=== PATIENT | female | born 1970 | race Caucasian/White ===

== ENCOUNTER 2018-03-27 22:05 | Observation (INO) | payer SELFPAY ==
[~2018-03-27] VITALS: Ht 165.1 cm; Wt 117.9 kg
--- NOTE | ~2018-03-27 | OP ---
PATIENT NAME: LAURA HO MEDICAL RECORD: [id number] :74 LOCATION:[facility] ADMISSION DATE:03/28/18 SURGEON: APARNA ELIZALDE MD DATE OF OPERATION: 03/28/2018 PROCEDURES: 1. Left heart catheterization. 2. Selective coronary angiography. 3. Left ventriculogram. INDICATION: Chest pain compatible with angina. PROCEDURE IN DETAIL: After informed consent was obtained and after a detailed description of risks, benefits as well as alternative therapies, the patient elected to proceed with angiogram and heart catheterization. The right radial area was prepped and draped in normal sterile fashion. Right radial artery was cannulated via modified Seldinger technique with placement of 5-Albanian sheath. All catheters exchanged through this sheath. FINDINGS: Left ventriculogram performed in standard 30-degree SORENSON view, reveals good cardiac wall motion throughout all segments. Overall ejection fraction estimated 60%. SELECTIVE CORONARY ANGIOGRAPHY: 1. Left main is with no significant angiographic disease. 2. Left anterior descending has moderate irregularities, but no flow-limiting stenosis. No stenosis greater than 20%. 3. Left circumflex has moderate irregularities, but no flow-limiting stenosis. No stenosis greater than 20%. 4. Right coronary artery has no significant disease. OVERALL IMPRESSION: Minimal cardiovascular disease is present. No flow-limiting stenosis. Continue medical management of the coronary artery disease and cardiac risk factors. TRANSINT:[id number] Voice Confirmation ID: [id number] DOCUMENT ID: [id number] APARNA ELIZALDE MD at 1006 CC: [id number] DICTATION DATE: 03/28/18 1353 HOUSE PAINTER: 03/28/18 1402 DIS IN 03/28/18 [facility] [address] [place] [address]
--- NOTE | ~2018-03-27 | CN ---
PATIENT NAME:LAURA CRUZ MEDICAL RECORD: [id number] : 74 LOCATION:[facility].E12- ADMIT DATE: 03/28/18 ACCOUNT: [id number] CONSULTING PHYSICIAN: APARNA ELIZALDE MD REFERRING PHYSICIAN: APARNA ELIZALDE MD DATE OF CONSULTATION: 03/28/2018 ADMITTING DIAGNOSES: 1. Chest pain compatible with angina. 2. Diabetes. 3. Family history of coronary artery disease. 4. Hypertension. 5. Hyperlipidemia. HISTORY OF PRESENT ILLNESS: Mrs. Cruz has multiple risk factors for coronary disease as listed above. She has been having 2 months of increasing episodes of chest pain. Chest pain is compatible with anginal. We evaluated her in the office. We suggested cardiac catheterization; however, her insurance company denied it and she is set for a stress test. She has continued to have worsening chest pain in an unstable fashion. She now presents to the Emergency Room. PHYSICAL EXAMINATION: GENERAL APPEARANCE: Well-nourished, well-developed, appears stated age. Level of distress, comfortable. PSYCHIATRIC: Mental status, alert, normal affect. Orientation, oriented to time, place and person. EYES: Lids and conjunctiva, noninjected. No discharge, no pallor. ENT: Lips, teeth, gums, normal dentition. Oropharynx, no cyanosis, no pallor. NECK: Carotid arteries, bilateral normal upstroke, no bruits, no thrills. JUGULAR VEINS: No jugular venous pressure or distention. CERVICAL LYMPH NODES: Nontender, nonenlarged. THYROID: Not enlarged. Nontender. No nodules. LUNGS: Respiratory effort, unlabored. CHEST: Normal curvature. No thoracic deformity. No chest wall tenderness. Percussion, resonant. Auscultation, clear. No wheezes, no rales, no rhonchi. CARDIOVASCULAR: Precordial exam, nondisplaced. No heaves or pericardial thrills. Rate and rhythm, regular. Heart sounds, normal S1, normal S2. No S3, no gallop, no rub. Systolic murmur, not heard. Diastolic murmur, not heard. EXTREMITIES: No cyanosis, no edema. Peripheral pulses, full and equal in all extremities, except as noted. No bruits appreciated. ABDOMEN: Soft, nondistended. Normal aorta. No bruit. Nontender. No masses. Liver, nontender, no hepatomegaly. Spleen, nontender, no splenomegaly. MUSCULOSKELETAL: No joint tenderness. No joint swelling. No erythema. NEUROLOGICAL: Normal gait, normal strength, normal tone. SKIN: Warm and dry. REVIEW OF SYSTEMS: The patient reports easy bruising but reports no swollen glands. The patient reports no fever, no night sweats, no significant weight gain, no significant weight loss. No significant exercise tolerance. The patient reports no dry eyes, no irritation, no vision change. Patient reports no difficulty hearing and no ear pain. Patient reports no frequent nose bleeds or nose and sinus problems. Patient reports on arm pain on exertion. No shortness of breath while lying down. No history of heart murmur. Patient reports no cough, no wheezing or coughing up blood. Patient reports no abdominal pain, no vomiting. Normal appetite. No diarrhea and not vomiting CONSULT REPORT [id number] LAURA CRUZ [place] blood. No nausea and no constipation. Patient reports no incontinence. No difficulty urinating. No hematuria. No increased frequency. Patient reports no muscle aches. No weakness, no arthralgias, no back pain. No swelling of the extremities. Patient reports no abnormal mole, no jaundice, no rashes. Reports no loss of consciousness. No weakness and no numbness. No seizures, dizziness, or headaches. The patient reports no depression, no sleep disturbance, feeling safe in a relationship and no alcohol abuse. Patient reports on fatigue. Reports no runny nose or sinus pressure. No itching, no hives, and no frequent sneezing. OVERALL IMPRESSION: Unstable anginal symptomatology in a pleasant patient with multiple risk factors, most likely she has hemodynamically significant coronary artery disease. We will proceed with coronary angiography. Further care depends upon findings of the angiography. TRANSINT:[id number] Voice Confirmation ID: [id number] DOCUMENT ID: [id number] APARNA ELIZALDE MD at 135 CC: [id number] DICTATION DATE: 03/28/18842 MENTALLY IMPAIRED TEACHER: 03/28/18 1126 ADM IN [place] [id number] [place] [address]
--- NOTE | ~2018-03-27 | HEMODYNAMI ---
PATIENT:LAURA HO MEDICAL RECORD: [id number] : 74 LOCATION:[facility]- [facility]# [id number] ADMISSION DATE: 03/28/18 Generatedon:03/28/201813:57 Patient name: LAURA HO Patient #: [id number] SSN: : 1970 Date of study: 03/28/2018 Page: Of Hemodynamic Procedure Report Patient Data Patient Demographics Procedure consent was obtained First Name: LAURA Gender: Female Last Name: [place] : 1970 [facility] Initial: CAMILLE Age: 47 year(s) Patient #: [id number] Race: Unknown Additional ID: [id number] Contact details [address]: [address] [place] [address] State: [place] City: [place] Zip code: [address] Past Medical History Allergies Allergen Reaction Date Comments Reported Penicillins 03/28/2018 Other allergy 03/28/2018 Latex Admission Admission Data Admission Date: 03/28/2018 Admission Time: 1:29 Admit Source: Emergency department Room #: D.E12 Lab Results Lab Result Date: 03/28/2018 Lab Result Time: 9:00 Biochemistry Name Units Result Min Max BUN mg/dl 11 --(-*--)-- 7 18 Creatinine mg/dl 0.6 --(*---)-- 0.6 1.3 CBC Name Units Result Min Max Hematocrit % 40.8 -*(----)-- 42 54 Hemoglobin g/dl 14.1 --(*---)-- 13.5 17.5 Procedure Procedure Types Cath Procedure Diagnostic Procedure LHC LHC w/Coronaries Procedure Description Procedure Date Procedure Date: 03/28/2018 Procedure Start Time: 13:43 Procedure End Time: 13:56 Procedure Staff Name Function Bogdan Curry MD Performing Physician Robbin Crespo RT Monitor Ashvin Leblanc RT Scrub Wai Caicedo RN Nurse Procedure Data Cath Procedure Fluoroscopy Diagnostic fluoroscopy Total fluoroscopy Time: 2.1 time: 2.1 min min Diagnostic fluoroscopy Total fluoroscopy dose: dose: 189.1 mGy 189.1 mGy Contrast Material Contrast Material Type Amount (ml) Isovue 300 54 Entry Location Entry Primary Successful Side Size Upsize Upsize Entry Closure Leslie ccessful Closure Location (Fr) 1 (Fr) 2 (Fr) Remarks Device Remarks Radial Right 6 Fr Mechanical artery Short Compression Estimated blood loss: 5 ml Diagnostic catheters Device Type Used For End Catheter Placement DIAGNOSTIC Manor 110cm 5 Procedure Fr catheter ([id number]) Procedure Medications Medication Administration Route Dosage 0.9% NaCl I.V. 100 ml/hr Oxygen etCO2 Nasal cannula 2 l/min Heparin Flush Bag added to field 2 bags (1000units/500ml NS) Lidocaine 2% added to field 20 Radial Cocktail added to field 1 syringe (Verapomil 2mg/Nitro 400mcg/Heparin 1500units) Versed I.V. 2 mg Fentanyl I.V. 100 mcg Radial Cocktail I.A. 1 syringe (Verapomil 2mg/Nitro 400mcg/Heparin 1500units) Versed I.V. 2 mg Hemodynamics Rest HGB: 14.1 (g/dl) Heart Rate: 78 (bpm) Pressure Samples Time Site Value (mmHg) Purpose Heart Use Rate(bpm) 13:46 LV 71/4,23 Snapshot 90 13:46 LV 118/-1,1 Snapshot 89 Snapshots Pre Cath Intra NCS Post Cath Vital Signs Time Heart Resp SPO2 etCO2 NIBP (mmHg) Rhythm Pain Sedation Rate (ipm) (%) (mmHg) Status Level (bpm) 13:46:13 91 18 98 37.4 137/80(108) NSR 0 (11) 10(A) , No pain 13:50:39 88 19 94 36.7 127/83(101) NSR 0 (11) 10(A) , No pain 13:55:01 81 18 95 37.4 125/83(107) NSR 0 (11) 10(A) , No pain Medications Time Medication Route Dose Verified Delivered Reason Notes Effectiveness by by 13:38:04 0.9% NaCl I.V. 100 Wai Wai Per ml/hr Marifer Caicedo physician RN RN 13:38:14 Oxygen etCO2 2 l/min Wai Wai Per Nasal Marifer Caicedo physician cannula RN RN 13:38:26 Heparin Flush added 2 bags Wai Wai used for Bag to Marifer Caicedo procedure (1000units/500ml field RN RN NS) 13:38:39 Lidocaine 2% added 20ml Wai Wai for local to vial Lorigan Lorigan anesthetic field RN RN 13:38:50 Radial Cocktail added 1 Wai Wai used for (Verapomil to syringe Lorigan Lorigan procedure 2mg/Nitro field RN RN 400mcg/Heparin 1500units) 13:43:58 Versed I.V. 2 mg Wai Wai for sedation Marifer Caicedo RN RN 13:44:05 Fentanyl I.V. 100 mcg Wai Wai for sedation Marifer Caicedo RN RN 13:44:51 Radial Cocktail I.A. 1 Wai Bogdan for (Verapomil syringe Lorigan Tauth MD vasodilation 2mg/Nitro RN 400mcg/Heparin 1500units) 13:45:55 Versed I.V. 2 mg Wai Wai for sedation Marifer Caicedo RN phonograph mechanic Log Time Note 12:47:48 Informed consent obtained and on chart 12:47:52 Admit Source: Emergency department 12:48:10 Diagnostic Cath status Elective 12:48:11 Time tracking: Regular hours (M-F 7:00 - 5:00) 12:48:15 Plan of Care:Hemodynamics will remain stable., Cardiac rhythm will remain stable., Comfort level will be maintained., Respiratory function will remain adequate., Patient/ family verbilizes understanding of procedure., Procedure tolerated without complication., Recovers from procedure without complications.. 12:48:21 H&P Date Dictated: 03/28/2018 Within 30 days and on chart.. 12:50:15 Lab Result : BUN 11 mg/dl 12:50:15 Lab Result : Hemoglobin 14.1 g/dl 12:50:15 Lab Result : Creatinine 0.6 mg/dl 12:50:15 Lab Result : Hematocrit 40.8 % 12:50:18 Lab results completed and on chart. 12:57:01 Patient not . Patient has had hysterectomy. 13:09:36 Ashvin Leblanc RT(R) sent for patient. Start room use. 13:33:53 Patient received from Pre/Post Procedure Room to CCL 3 Alert and oriented. Tansferred to table in Supine position. 13:34:00 Warm blankets applied, and roman hugger turned on for patient comfort. 13:34:02 Correct patient and procedure confirmed by team. 13:34:06 ECG and BP/O2 sat monitors applied to patient. 13:34:07 Vital chart was started 13:34:08 Baseline sample Acquired. 13:34:15 Rhythm: sinus rhythm 13:34:20 Full Disclosure recording started 13:34:57 Pre-procedure instructions explained to patient. 13:34:57 Pre-op teaching completed and patient verbalized understanding. 13:35:00 Family in waiting room. 13:35:15 Patient NPO since Midnight. 13:35:33 Patient allergic to Penicillins 13:35:57 Patient allergic to Other allergyLatex 13:36:13 Is the patient allergic to Iodine/contrast media? Unknown. 13:36:25 Is patient on blood thinner?Yes 13:36:29 ACC The patient was administered the following blood thiners within the last 24 hours: ACCPlavix 13:36:43 600mg PLAVIX IN THE ER 13:36:47 Patient diabetic? Yes. 13:36:49 If diabetic: On Metformin? Yes 13:37:37 ----Pre-sedation anethsthesia assessment.---- 13:37:40 Previous problem with sedation/anesthesia? No ? 13:37:42 Snore? Yes 13:37:43 Sleep apnea? No 13:37:44 Deviated septum? No 13:37:45 Opens mouth fully? Yes 13:37:46 Sticks out tongue? Yes 13:37:49 Airway obstruction? No ? 13:37:56 Dentures? Yes OUT 13:38:02 Pre procedure: right dorsailis pedis pulse 1+ Palpable, but thready & weak; easily obliterated 13:38:04 0.9% NaCl 100 ml/hr I.V. was administered by Wai Caicedo RN; Per physician; 13:38:06 Patient pain scale 0/10 ?. 13:38:14 Oxygen 2 l/min etCO2 Nasal cannula was administered by Wai Caicedo RN; Per physician; 13:38:18 IV patent on arrival in left forearm with 0.9% NaCl at [facility]. 13:38:26 Heparin Flush Bag (1000units/500ml NS) 2 bags added to field was administered by Wai Caicedo RN; used for procedure; 13:38:39 Lidocaine 2% 20ml vial added to field was administered by Wai Caicedo RN; for local anesthetic; 13:38:42 Right Radial & Right Groin area was prepped with chlora-prep and draped in sterile fashion 13:38:43 Alarms reviewed by R. N. 13:38:44 Sharps counted by scrub and verified by R.N. 13:38:50 Radial Cocktail (Verapomil 2mg/Nitro 400mcg/Heparin 1500units) 1 syringe added to field was administered by Wai Caicedo RN; used for procedure; 13:39:12 Use device set Radial Dx or PCI 13:39:13 ACIST Syringe (08373) opened to sterile field. 13:39:14 Medline Cath Pack ([id number]) opened to sterile field. 13:39:14 Bag Decanter (2002S) opened to sterile field. 13:39:15 DIAGNOSTIC WIRE .035 260cm J wire (901738) opened to sterile field. 13:39:16 ACIST Hand Control (83369) opened to sterile field. 13:39:16 ACIST Manifold (80153) opened to sterile field. 13:39:19 Tegaderm 4 x 4 (1626W) opened to sterile field. 13:39:22 SHEATH 6Fr Prelude Radial ([id number]) opened to sterile field. 13:39:41 Physician arrived 13:39:42 --------ALL STOP TIME OUT------ 13:39:43 Final Timeout: patient, procedure, and site verified with staff and physician. All members of the team are in agreement. 13:39:45 Right Radial & Right Groin site verified by team. 13:39:52 Physical assessment completed. ASA score P 2 - A patient with mild systemic disease as per Bogdan Curry MD. 13:40:27 Sedation plan: IV Moderate Sedation Medication:Versed, Fentanyl 13:42:37 Procedure started. 13:43:51 Local anesthetic to right radial artery with Lidocaine 2% by Bogdan Curry MD.INITIAL ACCESS ONLY 13:43:58 Versed 2 mg I.V. was administered by Wai Caicedo RN; for sedation; 13:44:05 Fentanyl 100 mcg I.V. was administered by Wai Caicedo RN; for sedation; 13:44:51 Radial Cocktail (Verapomil 2mg/Nitro 400mcg/Heparin 1500units) 1 syringe I.A. was administered by Bogdan Curry MD; for vasodilation; 13:45:04 A 6 Fr Short sheath was inserted into the Right Radial artery 13:45:42 A DIAGNOSTIC Manor 110cm 5 Fr catheter ([id number]) was advanced over the wire and used for Procedure. 13:45:54 Zero performed for pressure channel P1 13:45:55 Versed 2 mg I.V. was administered by Wai Caicedo RN; for sedation; 13:45:58 Zero performed for pressure channel P1 13:46:00 Zero performed for pressure channel P1 13:46:10 Zero performed for pressure channel P1 13:47:03 LV hemodynamics recorded. 13:47:05 LV gram done using SORENSON 13:47:11 EF : 55 % 13:47:43 RCA angiography performed. 13:48:04 Catheter removed. 13:48:32 GUIDE 6FR EBU 3.0 catheter ([id number]) opened to sterile field. 13:49:14 LCA angiography performed. 13:50:35 Catheter removed. 13:51:24 TR BAND Standard ([id number]) opened to sterile field. 13:52:38 Sheath removed intact; hemostasis achieved with Mechanical Compression to the Right Radial artery. 13:52:45 Procedure ended.(Physican Out) 13:52:55 Fluoroscopy time 02.10 minutes. 13:53:10 Fluoroscopy dose: 189.1 mGy 13:53:10 Flurop Dose total: 189.1 13:54:05 Contrast amount:Isovue 300 54ml. 13:54:07 Sharps counted by scrub and verified by R.N. 13:54:10 TR band inflated with 12cc of air. 13:54:12 Insertion/operative site no bleeding no hematoma. 13:54:18 Post right radial artery:stable 13:54:24 Post-procedure physical assessment completed. ASA score P 2 - A patient with mild systemic disease as per Bogdan Curry MD. 13:54:28 Post procedure rhythm: sinus rhythm 13:54:31 Estimated blood loss: 5 ml 13:54:32 Post procedure instruction explained to patient.Patient verbalizes understanding. 13:54:33 Patient needs reinforcement of post procedure teaching. 13:54:34 Procedure and supply charges have been captured, reviewed, submitted and are correct. 13:55:22 Vital chart was stopped 13:55:29 See physician's report for complete and final results. 13:55:31 Report given to Pre/Post Procedure Room. 13:55:58 Patient transfered to Pre/Post Procedure Room with Stretcher. 13:56:08 Procedure ended. 13:56:08 Full Disclosure recording stopped 13:56:12 End room use (Document Last) Device Usage Item Name Manufacture Quantity Catalog Number Hospital Part Current M inimal Lot# / Charge Number Stock Stock Serial# Code ACIST Syringe Acist 1 60207 371549 897225 212833 2 0 (55925) [employer] Medline Cath Cardinal 1 [id number] 898063 04880 663906 5 orderTalk ([id number]) Bag Decanter Microtek 1 2001S 051812 77704 430543 5 (2001S) Medical Inc. DIAGNOSTIC WIRE St Jimmie 1 771849 751243 960440 498313 3 0 .035 260cm J wire (684073) ACIST Hand Acist 1 51704 013942 773971 801349 5 Control (63886) [employer] Inc ACIST Manifold Acist 1 28676 609592 713488 084606 5 (49989) [employer] Inc Tegaderm 4 x 4 3M 1 1626W 222380 932929 996847 5 (1626W) SHEATH 6Fr Merit 1 [id number] 599451 763758 034408 5 Prelude Radial Medical ([id number]) DIAGNOSTIC Terumo 1 405013 642492 290174 694068 5 Manor 110cm 5 Fr catheter (627523) GUIDE 6FR EBU Medtronic 1 [id number] 009244 78117 339461 0 3.0 catheter ([id number]) TR BAND Terumo 1 [id number] 096447 235904 671026 4 0 Standard ([id number]) Signature Audit [place] Stage Time Signature Unsigned Intra-Procedure 03/28/2018 Robbin Crespo 1:57:33 PM RT(R) (CV) Signatures Monitor : Robbin Crespo RT Signature : Date : Time : [place] [id number] [place] [address]
[2018-03-27 23:47] LABS: BASOPHILS 0.3 % (0-2); EOSINOPHILS 1.1 % (0-7); HEMATOCRIT 39.7 % (36.0-48.0); HEMOGLOBIN 13.8 g/dL (12-16); IMMATURE GRANULOCYTES 0.8 % (0-5); LYMPHOCYTES 24.5 % (15-50); MCHC 34.8 g/dL (31.0-37.0); MCV 89.2 fL (80.0-100.0); MEAN PLATELET VOLUME 8.6 fL (7.4-10.4); MONOCYTES 6.7 % (2-11); NEUTROPHILS 66.6 % (40-80); PLATELET COUNT 227 10x3/uL (130-400); RBC 4.45 10x6/uL (4.00-5.40); RDW 12.7 % (11.5-14.5)
[2018-03-28] LABS: ALBUMIN 3.5 g/dL (3.4-5.0); ALKALINE PHOSPHATASE 62 U/L (46-116); ALT (SGPT) 24 U/L (10-68); BILIRUBIN - TOTAL 0.32 mg/dL (0.2-1.3); CALC OSMOLALITY 280 mosm/kg (275-300); CALCIUM 8.7 mg/dL (8.5-10.1); CHLORIDE - SERUM 104 mmol/L (98-107); CREATININE - SERUM 0.7 mg/dL (0.6-1.3); GLUCOSE 132 mg/dL (74-106); POTASSIUM - SERUM 3.8 mmol/L (3.5-5.1); PROTEIN - SERUM 7.2 g/dL (6.4-8.2); SODIUM 139 mmol/L (136-145); UREA NITROGEN 14 mg/dL (7-18); eGFR NON AFRICAN AMERICAN > 90 mL/min (90-120)
[2018-03-28 00:11] LABS: CKMB 0.3 U/L (0.0-3.6); CREATINE KINASE 28 UL (21-215)
[2018-03-28 00:13] LABS: TROPONIN-I < 0.017 ng/mL (0.000-0.060)
[2018-03-28 09:06] LABS: BASOPHILS 0.2 % (0-2); EOSINOPHILS 0.7 % (0-7); HEMATOCRIT 40.8 % (36.0-48.0); HEMOGLOBIN 14.1 g/dL (12-16); IMMATURE GRANULOCYTES 0.6 % (0-5); LYMPHOCYTES 16.6 % (15-50); MCH 31.1 pg (26.0-34.0); MCHC 34.6 g/dL (31.0-37.0); MCV 90.1 fL (80.0-100.0); MONOCYTES 6.1 % (2-11); NEUTROPHILS 75.8 % (40-80); PLATELET COUNT 211 10x3/uL (130-400); RBC 4.53 10x6/uL (4.00-5.40); RDW 12.9 % (11.5-14.5); WBC 10.1 10x3/uL (4.8-10.8)
[2018-03-28 09:31] LABS: CALC OSMOLALITY 278 mosm/kg (275-300); CARBON DIOXIDE 25.1 mmol/L (21.0-32.0); CHLORIDE - SERUM 104 mmol/L (98-107); CREATININE - SERUM 0.6 mg/dL (0.6-1.3); GLUCOSE 133 mg/dL (74-106); POTASSIUM - SERUM 4.4 mmol/L (3.5-5.1); SODIUM 139 mmol/L (136-145); TROPONIN-I < 0.017 ng/mL (0.000-0.060); UREA NITROGEN 11 mg/dL (7-18); eGFR NON AFRICAN AMERICAN > 90 mL/min (90-120)
[2018-03-28] MEDS ORDERED: COZAAR100 MG PO (14:25)
[2018-03-28] MEDS ORDERED: CYMBALTA60 MG PO (14:25)
[2018-03-28] MEDS ORDERED: CRESTOR20 MG PO (14:25)
[2018-03-28] MEDS ORDERED: LEVOXYL100 MCG PO (14:25)
[2018-03-28] MEDS ORDERED: PROTONIX40 MG PO (14:25)
[2018-03-28] MEDS ORDERED: GLUCOPHAGE500 MG PO (14:25)
== END 2018-03-28 16:05 | disposition home or self-care (01) ==
LOC: D.ER 22:05 → D.EDHOLD 03-28 01:29 → OBSVTIME 03-28 01:29 → D.CLR 03-28 14:49
PROVIDERS: Emergency Medicine; Internal Medicine Interventional Cardiology
DX: I25.110 Atherosclerotic heart disease of native coronary artery with unstable angina pectoris (principal); E11.9 Type 2 diabetes mellitus without complications; I10 Essential (primary) hypertension; E78.5 Hyperlipidemia, unspecified